=== PATIENT | female | born 1965 | race Caucasian/White ===

== ENCOUNTER 2023-05-16 23:08 | Emergency (ER) | payer OTHER ==
[2023-05-16 23:57] LABS: BASOPHILS PERCENT AUTO 0.5 % (0.2-1.5); EOSINOPHILS ABSOLUTE AUTO 0.1 x10-3/uL (0.0-0.8); HEMATOCRIT 41.8 % (34.2-48.2); HEMOGLOBIN 14.5 g/dL (11.4-15.5); LYMPHOCYTES ABSOLUTE AUTO 0.7 x10-3/uL (1.0-4.4); LYMPHOCYTES PERCENT AUTO 21.3 % (18.4-52.1); MEAN CORPUSCULAR HGB CONC 34.6 g/dL (31.9-34.8); MEAN CORPUSCULAR VOLUME 103.9 fL (76.7-100.5); MONOCYTES ABSOLUTE AUTO 0.4 x10-3/uL (0.3-1.0); MONOCYTES PERCENT AUTO 12.1 % (4.4-15.7); NEUTROPHILS PERCENT AUTO 62.1 % (30.8-76.2); PLATELET COUNT,PLT 191 x10(3)uL (151-488); RED BLOOD CELL COUNT 4.02 x10(6)uL (3.60-5.20); RED CELL DISTRIBUTION WIDTH 14.4 % (12.3-16.5); WHITE BLOOD CELL COUNT,WBC 3.2 x10-3/uL (3.0-10.3)
[2023-05-17 00:03] LABS: BLOOD UREA NITROGEN,BUN 10 mg/dL (7-18); BUN/CREATININE RATIO 14.3 (9-20); CALCIUM 8.7 mg/dL (8.6-10.2); CARBON DIOXIDE,CO2 30 mmol/L (21-32); CHLORIDE,CL 104 mmol/L (100-110); CREATININE 0.7 mg/dL (0.55-1.02); ESTIMATED GFR 100 mL/min (>60); GLUCOSE RANDOM 94 mg/dL (80-116); SODIUM,NA 140 mmol/L (135-145)
[2023-05-17 00:04] LABS: INR 0.92 (1.00-1.24); PROTHROMBIN TIME 9.5 sec (9.0-11.1)
[2023-05-17 00:09] LABS: A/G RATIO 0.8; ALANINE AMINOTRANSFERASE,ALT 52 U/L (12-36); ALBUMIN 3.5 g/dL (3.5-5.2); ALKALINE PHOSPHATASE 120 IU/L (56-112); ASPARTATE AMNIOTRANSFERASE,AST 35 IU/L (5-25); BILIRUBIN TOTAL 0.4 mg/dL (0.1-1.3); PROTEIN TOTAL,TP 8.1 g/dL (6.0-8.0)
[2023-05-17] MEDS ORDERED: Potassium Chloride 10 MEQ Tab.ER PO ONE (00:54)
[2023-05-17] MEDS ORDERED: Clopidogrel 75 MG Tab PO ONE (00:55)
== END 2023-05-17 01:16 | disposition home or self-care (01) ==
LOC: FB.ED 23:08
DX: E87.6 Hypokalemia (principal); I99.8 Other disorder of circulatory system
CPT/HCPCS: 36415; 70450; 80053; 83735; 85025; 85610; 99285; A9270-GY

== ENCOUNTER 2025-01-10 09:18 | Inpatient (IN) | payer OTHER ==
[2025-01-10] MEDS: Albuterol/Ipratropium 3.0-0.5 MG/3 ML Neb Soln NEB ONE (09:58)
[2025-01-10] MEDS: Sodium Chloride 0.9% 1,000 ML IV ONE (09:58)
[2025-01-10 10:17] LABS: BASOPHILS PERCENT AUTO 0.3 % (0.2-1.5); EOSINOPHILS PERCENT AUTO 0.9 % (0.6-8.1); HEMOGLOBIN 13.6 g/dL (11.4-15.5); LYMPHOCYTES ABSOLUTE AUTO 0.4 x10-3/uL (1.0-4.4); LYMPHOCYTES PERCENT AUTO 7.7 % (18.4-52.1); MEAN CORPUSCULAR HEMOGLOBIN 35.5 pg (23.9-33.9); MEAN CORPUSCULAR HGB CONC 34.9 g/dL (31.9-34.8); MEAN CORPUSCULAR VOLUME 101.9 fL (76.7-100.5); MEAN PLATELET VOLUME 9.4 fL (7.1-12.4); MONOCYTES ABSOLUTE AUTO 0.4 x10-3/uL (0.3-1.0); MONOCYTES PERCENT AUTO 7.7 % (4.4-15.7); NEUTROPHILS ABSOLUTE AUTO 4.3 x10-3/uL (1.5-6.3); NEUTROPHILS PERCENT AUTO 83.4 % (30.8-76.2); PLATELET COUNT,PLT 230 x10(3)uL (151-488); RED CELL DISTRIBUTION WIDTH 14.4 % (12.3-16.5); WHITE BLOOD CELL COUNT,WBC 5.1 x10-3/uL (3.0-10.3)
[2025-01-10 10:18] LABS: BLOOD UREA NITROGEN,BUN 11 mg/dL (7-18); BUN/CREATININE RATIO 12.2 (9-20); CALCIUM 8.5 mg/dL (8.6-10.2); CARBON DIOXIDE,CO2 32 mmol/L (21-32); CHLORIDE,CL 98 mmol/L (100-110); CREATININE 0.9 mg/dL (0.55-1.02); EST CRCL DRUG DOSING (CG) 59.81 mL/min; ESTIMATED GFR 73 mL/min (>60); GLUCOSE RANDOM 104 mg/dL (80-116); POTASSIUM,K 2.9 mmol/L (3.5-5.3); SODIUM,NA 133 mmol/L (135-145)
[2025-01-10 10:23] LABS: A/G RATIO 0.6; ALANINE AMINOTRANSFERASE,ALT 30 U/L (12-36); ALBUMIN 2.6 g/dL (3.2-4.6); ALKALINE PHOSPHATASE 87 IU/L (56-112); ASPARTATE AMNIOTRANSFERASE,AST 33 IU/L (5-25); BILIRUBIN TOTAL 0.6 mg/dL (0.1-1.3); PROTEIN TOTAL,TP 6.9 g/dL (6.0-8.0)
[2025-01-10 10:30] LABS: RED BLOOD CELL COUNT 3.83 x10(6)uL (3.60-5.20)
[2025-01-10 10:37] LABS: TROPONIN I 12.1 pg/mL (4.0-60.3)
[2025-01-10 10:38] LABS: LACTIC ACID 1.2 mmol/L (0.4-2.0)
[2025-01-10 10:40] LABS: C-REACTIVE PROTEIN 12.53 mg/dL (<0.50)
[2025-01-10] MEDS: Potassium Chloride 20 MEQ Tab.ER PO ONE (10:44)
[2025-01-10] MEDS: Iopamidol 755 Mg/ML 100 ML Bottle IV SCH ×2 (11:03→17:03)
[2025-01-10 11:11] LABS: APPEARANCE,URINE SLIGHTLY CLOUDY (CLEAR); BILIRUBIN,URINE NEGATIVE (NEGATIVE); COLOR,URINE YELLOW (YELLOW); GLUCOSE,URINE NORMAL (NORMAL); KETONES,URINE NEGATIVE (NEGATIVE); LEUKOCYTE ESTERASE,URINE NEGATIVE (NEGATIVE); NITRITE,URINE NEGATIVE (NEGATIVE); OCCULT BLOOD,URINE NEGATIVE (NEGATIVE); PROTEIN,URINE NEGATIVE (NEGATIVE); UROBILINOGEN,URINE NORMAL (NEGATIVE)
[2025-01-10] MEDS: Acetaminophen 325 MG Tab PO PRN ×2 (13:51→19:56)
[2025-01-10] MEDS ORDERED: Ketoconazole 2% Crm 30 GM Tube TOP PRN (14:21)
[2025-01-10] MEDS ORDERED: Melatonin 3 MG Tab PO PRN (14:25)
[2025-01-10] MEDS ORDERED: Acetaminophen 650 MG Supp RECTAL PRN (14:25)
[2025-01-10] MEDS: Albuterol/Ipratropium 3.0-0.5 MG/3 ML Neb Soln INH SCH (15:10)
[2025-01-10] MEDS: Enoxaparin 40 MG/0.4 ML Syringe SUBCUT SCH (15:10)
[2025-01-10] MEDS: Fluconazole 150 MG Tab PO SCH (15:10)
[2025-01-10] MEDS: Levofloxacin/Dextrose 5%-Water 750 MG in Premix Bag 1 BAG IV SCH (15:10)
[2025-01-10 15:23] LABS: MAGNESIUM 1.8 mg/dL (1.8-2.5)
[2025-01-10 15:28] LABS: POTASSIUM,K 2.5 mmol/L (3.5-5.3)
[2025-01-10] MEDS: Potassium Chloride 20 MEQ in Premix Bag 1 BAG IV SCH (15:59)
[2025-01-10] MEDS: Sodium Chloride 0.9% 1,000 ML IV SCH (17:03)
[2025-01-10] MEDS: VANCOmycin 1.75 GM/350 ML 1.75 GM in Premix Bag 1 BAG IV ONE (17:26)
[2025-01-10] MEDS: Sodium Chloride 0.9% 10 ML Syringe FLUSH PRN (17:26)
[2025-01-10 20:06] LABS: MRSA DETECTION BY PCR NOT DETECTED
[2025-01-10] MEDS: Benzonatate 100 MG Cap PO PRN (20:10)
[2025-01-10] MEDS ORDERED: Pramipexole 0.25 MG Tab PO PRN (21:00)
[2025-01-10] MEDS: Budesonide 0.5 MG/2 ML Neb Susp INH SCH (21:16)
[2025-01-10] MEDS: atorvaSTATin 40 MG Tab PO SCH (21:16)
[2025-01-10] MEDS: Pramipexole 0.25 MG Tab PO SCH (21:16)
[2025-01-10] MEDS: Clobetasol 0.05% Ointment 15 GM Tube TOP SCH (21:17)
[2025-01-10] MEDS: Mupirocin Oint 22 GM Tube TOP SCH (21:18)
[2025-01-11] MEDS: Potassium Chloride 20 MEQ Tab.ER PO ONE (01:20)
[2025-01-11] MEDS: VANCOmycin 1 GM/200 ML 1 GM in Premix Bag 1 BAG IV SCH (04:41)
[2025-01-11 06:17] LABS: BASOPHILS PERCENT AUTO 0.3 % (0.2-1.5); EOSINOPHILS ABSOLUTE AUTO 0.1 x10-3/uL (0.0-0.8); EOSINOPHILS PERCENT AUTO 1.5 % (0.6-8.1); HEMATOCRIT 36.7 % (34.2-48.2); HEMOGLOBIN 12.8 g/dL (11.4-15.5); LYMPHOCYTES ABSOLUTE AUTO 0.5 x10-3/uL (1.0-4.4); LYMPHOCYTES PERCENT AUTO 9.7 % (18.4-52.1); MEAN CORPUSCULAR HEMOGLOBIN 35.6 pg (23.9-33.9); MEAN CORPUSCULAR HGB CONC 34.9 g/dL (31.9-34.8); MEAN CORPUSCULAR VOLUME 102.1 fL (76.7-100.5); MEAN PLATELET VOLUME 9.1 fL (7.1-12.4); MONOCYTES ABSOLUTE AUTO 0.4 x10-3/uL (0.3-1.0); MONOCYTES PERCENT AUTO 7.7 % (4.4-15.7); NEUTROPHILS ABSOLUTE AUTO 3.8 x10-3/uL (1.5-6.3); NEUTROPHILS PERCENT AUTO 80.8 % (30.8-76.2); PLATELET COUNT,PLT 209 x10(3)uL (151-488); RED CELL DISTRIBUTION WIDTH 14.6 % (12.3-16.5); WHITE BLOOD CELL COUNT,WBC 4.7 x10-3/uL (3.0-10.3)
[2025-01-11 06:27] LABS: A/G RATIO 0.6; ALANINE AMINOTRANSFERASE,ALT 30 U/L (12-36); ALBUMIN 2.3 g/dL (3.2-4.6); ALKALINE PHOSPHATASE 81 IU/L (56-112); ASPARTATE AMNIOTRANSFERASE,AST 34 IU/L (5-25); BILIRUBIN TOTAL 0.6 mg/dL (0.1-1.3); BLOOD UREA NITROGEN,BUN 8 mg/dL (7-18); BUN/CREATININE RATIO 11.4 (9-20); CALCIUM 8.2 mg/dL (8.6-10.2); CARBON DIOXIDE,CO2 28 mmol/L (21-32); CHLORIDE,CL 103 mmol/L (100-110); CREATININE 0.7 mg/dL (0.55-1.02); ESTIMATED GFR 99 mL/min (>60); GLUCOSE RANDOM 84 mg/dL (80-116); POTASSIUM,K 3.8 mmol/L (3.5-5.3); PROTEIN TOTAL,TP 6.5 g/dL (6.0-8.0); SODIUM,NA 135 mmol/L (135-145)
[2025-01-11] MEDS: Aspirin 81 MG Tab.EC PO SCH (08:23)
[2025-01-11] MEDS: Potassium Chloride 10 MEQ Tab.ER PO SCH (08:24)
[2025-01-11] MEDS: Multivitamins with Iron/Calcium/Folic Acid/Minerals Tab PO SCH (08:27)
[2025-01-11] MEDS: Metoprolol Succinate 25 MG Tab.ER PO SCH (08:28)
[2025-01-11] MEDS: Furosemide 40 MG/4 ML VIAL IVPUSH SCH (09:42)
[2025-01-12 06:24] LABS: BASOPHILS PERCENT AUTO 0.5 % (0.2-1.5); EOSINOPHILS ABSOLUTE AUTO 0.1 x10-3/uL (0.0-0.8); EOSINOPHILS PERCENT AUTO 2.8 % (0.6-8.1); HEMATOCRIT 39.1 % (34.2-48.2); HEMOGLOBIN 13.6 g/dL (11.4-15.5); LYMPHOCYTES ABSOLUTE AUTO 0.4 x10-3/uL (1.0-4.4); LYMPHOCYTES PERCENT AUTO 8.8 % (18.4-52.1); MEAN CORPUSCULAR HEMOGLOBIN 35.7 pg (23.9-33.9); MEAN CORPUSCULAR HGB CONC 34.9 g/dL (31.9-34.8); MEAN CORPUSCULAR VOLUME 102.1 fL (76.7-100.5); MEAN PLATELET VOLUME 9.1 fL (7.1-12.4); MONOCYTES ABSOLUTE AUTO 0.3 x10-3/uL (0.3-1.0); MONOCYTES PERCENT AUTO 6.5 % (4.4-15.7); NEUTROPHILS ABSOLUTE AUTO 3.3 x10-3/uL (1.5-6.3); NEUTROPHILS PERCENT AUTO 81.4 % (30.8-76.2); PLATELET COUNT,PLT 241 x10(3)uL (151-488); RED CELL DISTRIBUTION WIDTH 14.7 % (12.3-16.5); WHITE BLOOD CELL COUNT,WBC 4.1 x10-3/uL (3.0-10.3)
[2025-01-12 06:37] LABS: A/G RATIO 0.5; ALANINE AMINOTRANSFERASE,ALT 37 U/L (12-36); ALBUMIN 2.5 g/dL (3.2-4.6); ALKALINE PHOSPHATASE 86 IU/L (56-112); ASPARTATE AMNIOTRANSFERASE,AST 35 IU/L (5-25); BILIRUBIN TOTAL 0.5 mg/dL (0.1-1.3); BLOOD UREA NITROGEN,BUN 9 mg/dL (7-18); BUN/CREATININE RATIO 11.3 (9-20); CALCIUM 8.6 mg/dL (8.6-10.2); CARBON DIOXIDE,CO2 32 mmol/L (21-32); CHLORIDE,CL 101 mmol/L (100-110); CREATININE 0.8 mg/dL (0.55-1.02); EST CRCL DRUG DOSING (CG) 67.29 mL/min; ESTIMATED GFR 84 mL/min (>60); GLUCOSE RANDOM 99 mg/dL (80-116); POTASSIUM,K 3.2 mmol/L (3.5-5.3); PROTEIN TOTAL,TP 7.1 g/dL (6.0-8.0); SODIUM,NA 136 mmol/L (135-145)
[2025-01-12 06:48] LABS: RED BLOOD CELL COUNT 3.83 x10(6)uL (3.60-5.20)
[2025-01-12 22:51] LABS: LEGIONELLA PNEUMOPHILA AG,URN Negative (Negative)
[2025-01-12 23:11] LABS: STREPTOCOCCUS PNEUMONIAE AG,UR Negative (Negative)
== END 2025-01-12 11:20 | disposition home or self-care (01) | DRG 194 ==
LOC: FB.ED 09:18 → FB.MS 12:51 → UNDOADMIN 12:58
PROVIDERS: ADMIT Internal Medicine; ATTEND Internal Medicine
DX: J18.9 Pneumonia, unspecified organism (principal); J44.0 Chronic obstructive pulmonary disease with (acute) lower respiratory infection; E87.6 Hypokalemia; F17.210 Nicotine dependence, cigarettes, uncomplicated; H54.7 Unspecified visual loss; E78.00 Pure hypercholesterolemia, unspecified; I10 Essential (primary) hypertension; F41.9 Anxiety disorder, unspecified; F32.A Depression, unspecified; R79.89 Other specified abnormal findings of blood chemistry; R91.1 Solitary pulmonary nodule; E27.8 Other specified disorders of adrenal gland; K52.9 Noninfective gastroenteritis and colitis, unspecified; Z86.73 Personal history of transient ischemic attack (TIA), and cerebral infarction without residual deficits; Z86.16 Personal history of COVID-19; Z87.81 Personal history of (healed) traumatic fracture; Z79.899 Other long term (current) drug therapy; Z79.82 Long term (current) use of aspirin; Z79.52 Long term (current) use of systemic steroids
CPT/HCPCS: 36415; 71260; 71275; 80053; 81003; 83605; 83735; 83880; 84132; 84484; 85025; 85379; 86140; 87040; 87449; 87641; 87899; 93005; 93010; 93306; 94640; 96360; 96361; 99222; 99232; 99238; 99285; 99285-25; A9270-GY; J1650; J1938; J1956; J3372; J3480; J7030; Q9967